=== PATIENT | female | born 1990 | race Caucasian/White ===

== ENCOUNTER 2019-08-18 23:57 | Emergency (ER) | payer OTHER ==
[2019-08-19 00:15] VITALS: BP 106/52
--- NOTE | 2019-08-19 00:52 | ER Document Report ---
ED Extremity Problem, Upper - General Stated Complaint: FINGER LACERATION Time Seen by Provider: 08/19/19 00:52 Mode of Arrival: Ambulatory Information source: Patient Notes: 29-year-old female with no previous medical problems presents to the emergency room with a laceration to her left middle finger. Describes it as a dull aching sensation. No medications for symptoms. Patient states she cut it while trying to open up a bottle of Tylenol. Bleeding is controlled. Tetanus is up-to-date. Patient is right-handed. Patient denies . TRAVEL OUTSIDE OF THE [place] IN LAST 30 DAYS: No - HPI Patient complains to provider of: Injury Past Medical History - General Information source: Patient - Social History Smoking Status: Never Smoker Frequency of alcohol use: Occasional Drug Abuse: None Lives with: Family Family History: Reviewed & Not Pertinent Patient has suicidal ideation: No Patient has homicidal ideation: No - Medical History Medical History: Negative - Immunizations Immunizations up to date: Yes Review of Systems - Review of Systems Constitutional: No symptoms reported EENT: No symptoms reported Cardiovascular: No symptoms reported Respiratory: No symptoms reported Musculoskeletal: Muscle pain Skin: Other - Laceration -: Yes All other systems reviewed and negative Physical Exam - Vital signs Vitals: Temp 98.6 F 08/18/19 23:58 - General General appearance: Appears well, Alert In distress: Mild - HEENT Head: Normocephalic, Atraumatic Eyes: Normal Pupils: PERRL - Respiratory Respiratory status: No respiratory distress Chest status: Nontender Breath sounds: Normal Chest palpation: Normal - Cardiovascular Rhythm: Regular Heart sounds: Normal auscultation Murmur: No - Extremities Hand: Laceration - 2 Centimeter laceration noted to the dorsal aspect of the distal left middle finger. Full range of motion. Bleeding controlled. - Neurological Neuro grossly intact: Yes Cognition: Normal Orientation: AAOx4 Notes: Positive left radial pulse. Capillary refill less than 3 seconds. - Skin Skin Temperature: Warm Skin Moisture: Dry Location of irregularity: Extremities - 2 Centimeter laceration noted to the distal dorsal aspect of the left middle finger. Course - Re-evaluation Re-evalutation: 08/19/19 02:07 Wound was cleansed and sutured as documented. Dressing applied by nursing staff as documented. Patient is neurovascularly intact. Counseled on proper wound care. Keep wound clean and dry. Can remove the dressing in 24 hours. Sutures out in 8 to 10 days. Tylenol and/or Motrin as needed for pain. Given strict return to emergency room guidelines. All questions were answered. Patient verbalized understanding and agrees with plan of care. 08/19/19 04:21 - Vital Signs Vital signs: Temp Pulse Resp BP Pulse Ox 98.6 F 70 18 106/52 L 98 08/19/19 00:14 08/19/19 00:14 08/19/19 00:14 08/19/19 00:14 08/19/19 00:14 Procedures - Laceration/Wound Repair 3rd digit Time completed: 02:06 Wound length (cm): 2 Wound's Depth, Shape: Superficial Laceration pre-procedure: Sterile PPE donned, Sterile drapes applied, Shur-Clens applied Anesthetic type: 1% Lidocaine Volume Anesthetic (mLs): 1 Wound explored: No foreign body removed Irrigated w/ Saline (mLs): 5 Wound Repaired With: Sutures Suture Size/Type: 5:0, Ethilon Number of Sutures: 4 Layer Closure?: No Discharge - Discharge Clinical Impression: Laceration of left middle finger w/o foreign body w/o damage to nail Qualifiers: Encounter type: initial encounter Qualified Code(s): S61.213A - Laceration without foreign body of left middle finger without damage to nail, initial encounter Condition: Stable Disposition: HOME, SELF-CARE Instructions: Laceration Care ([facility]) Additional Instructions: Keep wound clean and dry for the next 24 hours. Tylenol or Motrin for pain. Sutures out 8 to 10 days.
[2019-08-19] MEDS ORDERED: LIDOCAINE 1% INJ-PF (10 MG/ML) 30 ML SDV INJ ONE (01:13)
== END 2019-08-19 02:16 | disposition home or self-care (01) ==
LOC: ER 23:57
DX: S61.213A Laceration without foreign body of left middle finger without damage to nail, initial encounter (principal); W26.9XXA Contact with unspecified sharp object(s), initial encounter
CPT/HCPCS: 99282; 12001; J3490